=== PATIENT | female | born 1985 | race Two or more races ===

== ENCOUNTER 2025-04-13 15:06 | Emergency (ER) | payer OTHER ==
[~2025-04-13] VITALS: Ht 157.5 cm; Wt 136.1 kg
[2025-04-13] MEDS ORDERED: METRONIDAZOLE500 MG PO (20:30)
== END 2025-04-13 22:14 | disposition home or self-care (01) ==
LOC: ER 15:16
DX: N76.0 Acute vaginitis (principal); Z88.8 Allergy status to other drugs, medicaments and biological substances

== ENCOUNTER 2025-06-12 09:40 | Emergency (ER) | payer OTHER ==
[~2025-06-12] VITALS: Ht 157.5 cm; Wt 134.7 kg
[~2025-06-12 09:40] MED LIST: METRONIDAZOLE500 MG PO
[2025-06-12] MEDS ORDERED: PANTOPRAZOLE SO40 MG PO (10:15)
[2025-06-12] MEDS ORDERED: FLUCONAZOLE150 MG PO (11:47)
== END 2025-06-12 12:16 | disposition home or self-care (01) ==
LOC: ER 09:51
DX: A59.01 Trichomonal vulvovaginitis (principal); B37.31 Acute candidiasis of vulva and vagina; N76.0 Acute vaginitis; B96.89 Other specified bacterial agents as the cause of diseases classified elsewhere; F41.9 Anxiety disorder, unspecified; Z88.5 Allergy status to narcotic agent